=== PATIENT | female | born 1980 | race Caucasian/White ===

== ENCOUNTER 2016-07-01 15:00 | Outpatient (RCR) | payer OTHER ==
[~2016-07-01 15:00] MED LIST: HYDR-3812 PO; LORA-404 PO; LORA0.5T; OMEP40CA36 PO; ONDA4TAB8 PO; ONDA8TAB13; PANT20TA2 PO; PANT20TA3; PANT40TA2 PO; PHEN100T17 PO; PRAM0.5T9; SCOP1PAT TD; SCR1T1 PO; SUCR1ORA5 PO; SUCR1TAB36 PO; SULF-222 PO
== END 2016-07-14 | disposition home or self-care (01) ==
PROVIDERS: ATTEND Nurse Practitioner
DX: M54.2 Cervicalgia (principal)

== ENCOUNTER 2016-10-22 15:18 | Emergency (ER) | payer SELFPAY ==
[~2016-10-22] VITALS: Ht 170.2 cm; Wt 52.2 kg
[2016-10-22] MEDS ORDERED: LORazepam INJ 2 MG/ML (ATIVAN) VIAL IVP ONE (15:45)
--- NOTE | 2016-10-22 15:48 | ED General ---
General Chief Complaint: Chest Pain Stated Complaint: CHEST PAIN, HIGH BLOOD PRESSURE, SHAKY Source of Information: Patient Exam Limitations: No Limitations History of Present Illness Time Seen by Provider: 15:46 Initial Comments To ER with a 2 day history of chest pain, shakiness, anxiety, high blood pressure. She started fluvoxamine recently (4 days ago) for suspected Tourette' s syndrome. Timing/Duration: 1-2 Days Severity: Moderate Allergies and Home Medications Allergies Coded Allergies: meperidine (Unverified Adverse Reaction, Unknown, 02/16/16) promethazine (Unverified Adverse Reaction, Unknown, 02/16/16) Home Medications Fluvoxamine Maleate 25 Mg Tablet, 25 MG PO DAILY, (Reported) Lorazepam 0.5 Mg Tablet, 0.5 MG PO DAILY, (Reported) Pantoprazole Sodium 40 Mg Tablet.dr, 40 MG PO DAILY, #60 Ref 3 Take protonix 40 mg bid for 2 weeks and then once a day after that Prescribed by: ASAD NELSON on 03/17/16 1020 Sucralfate 1 Gm Tablet, 1 GM PO QID, #120 Prescribed by: ASAD NELSON on 03/17/16 1020 Constitutional: see HPI, diaphoresis EENTM: see HPI Respiratory: no symptoms reported Cardiovascular: no symptoms reported Genitourinary: no symptoms reported Musculoskeletal: see HPI Skin: no symptoms reported Psychiatric/Neurological: No Symptoms Reported Hematologic/Lymphatic: No Symptoms Reported Past Jjoidph-Sobdds-Prhmjm Hx Patient Social History Recent Foreign Travel: No Contact w/Someone Who Travel: No Recent Hopitalizations: No Surgeries HX Surgeries: Yes (CS X2, OOPHORECTOMY) Surgeries: Section, Hysterectomy, Tubal Ligation Respiratory Hx Respiratory Disorders: No Cardiovascular Hx Cardiac Disorders: No Neurological Hx Neurological Disorders: No Reproductive System Hx 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 Genitourinary Hx Genitourinary Disorders: Yes Genitourinary Disorders: UTI-Chronic Gastrointestinal Hx Gastrointestinal Disorders: Yes (EGD; MULTIPLE COLONOSCOPIES) Gastrointestinal Disorders: Gastroesophageal Reflux, Hiatal Hernia, Irritable Bowel Musculoskeletal Hx Musculoskeletal Disorders: No Endocrine Hx Endocrine Disorders: No HEENT HX ENT Disorders: No Cancer Hx Cancer: No Psychosocial Hx Psychiatric Problems: No (PT DENIES) Blood Transfusions Hx Blood Disorders: No Family Medical History Significant Family History: No Pertinent Family Hx Physical Exam Vital Signs Vital Sign - Last 12Hours 10/22/16 15:30 Temp 97.8 Pulse 90 Resp 20 B/P (MAP) 133/105 Pulse Ox 98 O2 Delivery Room Air Capillary Refill : General Appearance: No Apparent Distress, WD/WN, Anxious, Other (keep her eyes closed while talking) Eyes: Bilateral Eye EOMI, Bilateral Eye Normal Inspection, Bilateral Eye PERRL HEENT: PERRL/EOMI, TMs Normal Neck: Full Range of Motion, Normal Inspection Respiratory: No Accessory Muscle Use, No Respiratory Distress Cardiovascular: Regular Rate, Rhythm, Normal Peripheral Pulses Gastrointestinal: Non Tender, Soft Extremity: Normal Capillary Refill, Normal Inspection Neurologic/Psychiatric: Alert, Oriented x3 Skin: Normal Color, Warm/Dry Progress/Results/Core Measures Results/Orders Lab Results Laboratory Tests Test 10/22/16 15:45 10/22/16 15:47 10/22/16 16:10 Range/Units White Blood Count 7.3 4.3-11.0 10^3/uL Red Blood Count 4.65 4.35-5.85 10^6/uL Hemoglobin 14.7 11.5-16.0 G/DL Hematocrit 42 35-52 % Mean Corpuscular Volume 89 80-99 FL Mean Corpuscular Hemoglobin 32 25-34 PG Mean Corpuscular Hemoglobin Concent 35 32-36 G/DL Red Cell Distribution Width 11.8 10.0-14.5 % Platelet Count 267 130-400 10^3/uL Mean Platelet Volume 10.2 7.4-10.4 FL Neutrophils (%) (Auto) 77 H 42-75 % Lymphocytes (%) (Auto) 17 12-44 % Monocytes (%) (Auto) 5 0-12 % Eosinophils (%) (Auto) 0 0-10 % Basophils (%) (Auto) 1 0-10 % Neutrophils # (Auto) 5.6 1.8-7.8 X 10^3 Lymphocytes # (Auto) 1.3 1.0-4.0 X 10^3 Monocytes # (Auto) 0.4 0.0-1.0 X 10^3 Eosinophils # (Auto) 0.0 0.0-0.3 10^3/uL Basophils # (Auto) 0.0 0.0-0.1 10^3/uL Sodium Level 140 135-145 MMOL/L Potassium Level 3.9 3.6-5.0 MMOL/L Chloride Level 107 98-107 MMOL/L Carbon Dioxide Level 24 21-32 MMOL/L Anion Gap 9 5-14 MMOL/L Blood Urea Nitrogen 12 7-18 MG/DL Creatinine 0.83 0.60-1.30 MG/DL Estimat Glomerular Filtration Rate > 60 BUN/Creatinine Ratio 14 Glucose Level 97 70-105 MG/DL Calcium Level 9.6 8.5-10.1 MG/DL Total Bilirubin 0.7 0.1-1.0 MG/DL Aspartate Amino Transf (AST/SGOT) 17 5-34 U/L Alanine Aminotransferase (ALT/SGPT) 17 0-55 U/L Alkaline Phosphatase 31 L 40-136 U/L Troponin I < 0.30 <0.30 NG/ML Total Protein 7.4 6.4-8.2 G/DL Albumin 4.9 H 3.2-4.5 G/DL Thyroid Stimulating Hormone (TSH) 1.24 0.35-4.94 UIU/ML Free Thyroxine 1.02 0.70-1.48 NG/DL Glucometer 101 70-110 MG/DL Urine Color YELLOW Urine Clarity CLEAR Urine pH 7 5-9 Urine Specific [place] 1.010 L 1.016-1.022 Urine Protein NEGATIVE NEGATIVE Urine Glucose (UA) NEGATIVE NEGATIVE Urine Ketones 1+ H NEGATIVE Urine Nitrite NEGATIVE NEGATIVE Urine Bilirubin NEGATIVE NEGATIVE Urine Urobilinogen NORMAL NORMAL MG/DL Urine Leukocyte Esterase NEGATIVE NEGATIVE Urine RBC (Auto) NEGATIVE NEGATIVE Urine RBC NONE /HPF Urine WBC RARE /HPF Urine Squamous Epithelial Cells 2-5 /HPF Urine Crystals NONE /LPF Urine Bacteria FEW H /HPF Urine Casts NONE /LPF Urine Mucus NEGATIVE /LPF Urine Culture Indicated NO Urine Opiates Screen NEGATIVE NEGATIVE Urine Oxycodone Screen NEGATIVE NEGATIVE Urine Methadone Screen NEGATIVE NEGATIVE Urine Propoxyphene Screen NEGATIVE NEGATIVE Urine Barbiturates Screen NEGATIVE NEGATIVE Ur Tricyclic Antidepressants Screen NEGATIVE NEGATIVE Urine Phencyclidine Screen NEGATIVE NEGATIVE Urine Amphetamines Screen NEGATIVE NEGATIVE Urine Methamphetamines Screen NEGATIVE NEGATIVE Urine Benzodiazepines Screen NEGATIVE NEGATIVE Urine Cocaine Screen NEGATIVE NEGATIVE Urine Cannabinoids Screen NEGATIVE NEGATIVE My Orders Orders - REJI CAVAZOS DRIVEWAY SEALER Cbc With Automated Diff (10/22/16 15:37) Comprehensive Metabolic Panel (10/22/16 15:37) Ua Culture If Indicated (10/22/16 15:37) Urine Bedside (10/22/16 15:37) Saline Lock/Iv-Start (10/22/16 15:37) Thyroid Stimulating Hormone (10/22/16 15:37) Free T4 (Free Thyroxine) (10/22/16 15:37) Drug Screen Stat (Urine) (10/22/16 15:37) Lorazepam Injection (Ativan Injection) (10/22/16 15:45) Medications Given in ED Current Medications Medications Dose Ordered Sig/Aditi Route Start Time Stop Time Status Last Admin Dose Admin Lorazepam 1 mg ONCE ONCE IVP 10/22/16 15:45 10/22/16 15:46 DC 10/22/16 15:52 1 MG Vital Signs/I&O Vital Sign - Last 12Hours 10/22/16 15:30 Temp 97.8 Pulse 90 Resp 20 B/P (MAP) 133/105 Pulse Ox 98 O2 Delivery Room Air Departure Impression Impression: Primary Impression: Medication adverse effect Disposition: 01 HOME, SELF-CARE Condition: Stable Departure-Patient Inst. Decision time for Depature: 16:42 Referrals: LINDA BARGER DO (PCP) Primary Care Physician Patient Instructions: NO INSTRUCTIONS GIVEN Add. Discharge Instructions: 1. Discuss her symptoms with her primary care provider. I think your symptoms are side effects of starting the fluvoxamine. With that in mind side effects are typically worse in the first 1-3 weeks and taper off after that. Because of that I think that she should continue your 2. Return to ER for any concerns 3. All discharge instructions reviewed with patient and/or family. Voiced understanding. Scripts Lorazepam (Lorazepam) 1 Mg Tablet 1 MG PO BID Y for ANXIETY, #10 TAB Prov: REJI CAVAZOS DRIVEWAY SEALER 10/22/[address] SEALER October 22, 2016 15:48
[2016-10-22 15:53] LABS: BASOPHILS % (AUTO) 1 % (0-10); EOSINOPHILS % (AUTO) 0 % (0-10); LYMPHOCYTES # (AUTO) 1.3 X 10^3 (1.0-4.0); LYMPHOCYTES % (AUTO) 17 % (12-44); MEAN CORPUSCULAR HEMOGLOBIN 32 PG (25-34); MEAN CORPUSCULAR HGB CONC 35 G/DL (32-36); MEAN CORPUSCULAR VOLUME 89 FL (80-99); MEAN PLATELET VOLUME 10.2 FL (7.4-10.4); MONOCYTES # (AUTO) 0.4 X 10^3 (0.0-1.0); MONOCYTES % (AUTO) 5 % (0-12); NEUTROPHILS # (AUTO) 5.6 X 10^3 (1.8-7.8); NEUTROPHILS % (AUTO) 77 % (42-75); PLATELET COUNT 267 10^3/uL (130-400); RED BLOOD COUNT 4.65 10^6/uL (4.35-5.85); RED CELL DISTRIBUTION WIDTH 11.8 % (10.0-14.5); WHITE BLOOD COUNT 7.3 10^3/uL (4.3-11.0)
[2016-10-22] MEDS ORDERED: FLUV25TA3 PO (16:04)
[2016-10-22 16:14] LABS: ALANINE AMINOTRANSFERASE 17 U/L (0-55); ALBUMIN 4.9 G/DL (3.2-4.5); ANION GAP 9 MMOL/L (5-14); ASPARTATE AMINO TRANSFERASE 17 U/L (5-34); BILIRUBIN,TOTAL 0.7 MG/DL (0.1-1.0); BLOOD UREA NITROGEN 12 MG/DL (7-18); BUN/CREATININE RATIO 14; CALCIUM 9.6 MG/DL (8.5-10.1); CARBON DIOXIDE 24 MMOL/L (21-32); CHLORIDE 107 MMOL/L (98-107); CREATININE SERUM 0.83 MG/DL (0.60-1.30); GFR ESTIMATED > 60; GLUCOSE 97 MG/DL (70-105); POTASSIUM 3.9 MMOL/L (3.6-5.0); SODIUM 140 MMOL/L (135-145); TOTAL PROTEIN 7.4 G/DL (6.4-8.2)
[2016-10-22 16:18] LABS: BILIRUBIN,URINE NEGATIVE (NEGATIVE); KETONES,URINE 1+ (NEGATIVE); LEUKOCYTE ESTERASE ,URINE NEGATIVE (NEGATIVE); NITRITE,URINE NEGATIVE (NEGATIVE); PH,URINE 7 (5-9); PROTEIN,URINE NEGATIVE (NEGATIVE); UROBILINOGEN,URINE NORMAL (NORMAL)
[2016-10-22 16:25] LABS: WBC,URINE RARE /HPF
[2016-10-22 16:35] LABS: THYROID STIMULATING HORMONE 1.24 UIU/ML (0.35-4.94); TROPONIN I < 0.30 NG/ML (<0.30)
[2016-10-22] MEDS ORDERED: LORA1TAB PO (16:57)
[2016-10-22 17:08] VITALS: BP 121/85
== END 2016-10-22 17:08 | disposition home or self-care (01) ==
LOC: EDUNIT# 15:18 → ER 15:21
DX: R07.9 Chest pain, unspecified (principal); F41.9 Anxiety disorder, unspecified; T43.225A Adverse effect of selective serotonin reuptake inhibitors, initial encounter
CPT/HCPCS: 36415; 80053; 80306; 81000; 82962; 84439; 84443; 84484; 85025; 93005; 96374

== ENCOUNTER 2016-10-24 12:52 | Emergency (ER) | payer SELFPAY ==
[~2016-10-24] VITALS: Ht 167.6 cm; Wt 52.2 kg
[~2016-10-24 12:52] MED LIST changes: +FLUV25TA3 PO; +LORA1TAB PO
[2016-10-24] MEDS ORDERED: NS IV 1000 ML 1,000 ML IV ONE (13:21)
[2016-10-24 13:37] LABS: BASOPHILS % (AUTO) 1 % (0-10); EOSINOPHILS % (AUTO) 1 % (0-10); LYMPHOCYTES # (AUTO) 1.2 X 10^3 (1.0-4.0); LYMPHOCYTES % (AUTO) 13 % (12-44); MEAN CORPUSCULAR HEMOGLOBIN 31 PG (25-34); MEAN CORPUSCULAR HGB CONC 34 G/DL (32-36); MEAN CORPUSCULAR VOLUME 90 FL (80-99); MEAN PLATELET VOLUME 10.3 FL (7.4-10.4); MONOCYTES # (AUTO) 0.5 X 10^3 (0.0-1.0); MONOCYTES % (AUTO) 6 % (0-12); NEUTROPHILS # (AUTO) 7.1 X 10^3 (1.8-7.8); NEUTROPHILS % (AUTO) 80 % (42-75); PLATELET COUNT 245 10^3/uL (130-400); RED BLOOD COUNT 4.67 10^6/uL (4.35-5.85); RED CELL DISTRIBUTION WIDTH 11.6 % (10.0-14.5); WHITE BLOOD COUNT 8.8 10^3/uL (4.3-11.0)
--- NOTE | 2016-10-24 13:42 | ED General ---
General Chief Complaint: General Problems/Pain Stated Complaint: SYNCOPE, HARD TIME THINKING Nursing Triage Note: AMBULATED TO ROOM 09 WITH MULTIPLE COMPLAINTS INCLUDING WEAKNESS, NOT THINKING STRAIT, FEELING LIKE SHE IS GOING TO PASS OUT, CHEST PAIN, SOA - ET GENERALLY NOT FEELING WELL SINCE TAKING A NEW MEDICATION THAT SHE HAS NOW STOPPED. THIS IS 2ND VISIT TO ER FOR SAME SYMPTOMS. PT IS TAKIKNG A NUTRITIONAL SUPPLEMENT CALLED THRIVE ALSO. 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 Nursing Sepsis Screen: No Definite Risk Source of Information: Patient Exam Limitations: No Limitations History of Present Illness Time Seen by Provider: 13:15 Initial Comments Here with a variety of complaints including not feeling well, chest pain, shortness of air, abdominal pain, weakness, not thinking well and overall not feeling well. She was seen 2 days ago and had a fairly benign workup but was told to stop taking the new medication that should started 2 days prior to that. She did do that but she is still not feeling well today. She did take one of the Ativan that was prescribed for this and took a shower and that did not make things better so she presented to the ER today. She is tearful. Timing/Duration: 2-3 Days, Changing Over Time Severity: Moderate Associated Systoms: Chest Pain, No Fever/Chills, Malaise, Nausea/Vomiting, Shortness of Air, Weakness Allergies and Home Medications Allergies Coded Allergies: meperidine (Unverified Adverse Reaction, Unknown, 02/16/16) promethazine (Unverified Adverse Reaction, Unknown, 02/16/16) Home Medications Fluvoxamine Maleate 25 Mg Tablet, 25 MG PO DAILY, (Reported) Lorazepam 0.5 Mg Tablet, 0.5 MG PO DAILY, (Reported) Lorazepam 1 Mg Tablet, 1 MG PO BID PRN for ANXIETY, #10 Prescribed by: REJI CAVAZOS on 10/22/16 1657 Pantoprazole Sodium 40 Mg Tablet.dr, 40 MG PO DAILY, #60 Ref 3 Take protonix 40 mg bid for 2 weeks and then once a day after that Prescribed by: ASAD NELSON on 03/17/16 1020 Sucralfate 1 Gm Tablet, 1 GM PO QID, #120 Prescribed by: ASAD NELSON on 03/17/16 1020 Constitutional: see HPI, No chills, dizziness, No fever, malaise EENTM: see HPI Respiratory: see HPI, short of breath, No wheezing Cardiovascular: chest pain, No edema, palpitations Gastrointestinal: abdominal pain (epigastric), nausea, No vomiting Genitourinary: No dysuria, No hematuria : No Musculoskeletal: muscle twitching Skin: no symptoms reported Psychiatric/Neurological: No Symptoms Reported All Other Systems Reviewed Negative Unless Noted: Yes Past Zqogjvf-Qcxlil-Nxrbcu Hx Patient Social History Alcohol Use: Denies Use Recreational Drug Use: No Smoking Status: Never a Smoker Recent Foreign Travel: No Contact w/Someone Who Travel: No Recent Infectious Disease Expo: No Recent Hopitalizations: No Seasonal Allergies Seasonal Allergies: No Surgeries HX Surgeries: Yes (CS X2, OOPHORECTOMY) Surgeries: Section, Hysterectomy, Tubal Ligation Respiratory Hx Respiratory Disorders: No Cardiovascular Hx Cardiac Disorders: No Neurological Hx Neurological Disorders: No Reproductive System Hx Reproductive Disorders: 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 Genitourinary Hx Genitourinary Disorders: Yes Genitourinary Disorders: UTI-Chronic Gastrointestinal Hx Gastrointestinal Disorders: Yes (EGD; MULTIPLE COLONOSCOPIES) Gastrointestinal Disorders: Gastroesophageal Reflux, Hiatal Hernia, Irritable Bowel Musculoskeletal Hx Musculoskeletal Disorders: No Endocrine Hx Endocrine Disorders: No HEENT HX ENT Disorders: No Cancer Hx Cancer: No Psychosocial Hx Psychiatric Problems: No (PT DENIES) Blood Transfusions Hx Blood Disorders: No Reviewed Nursing Assessment Reviewed/Agree w Nursing PMH: Yes Family Medical History Significant Family History: No Pertinent Family Hx Physical Exam Vital Signs Vital Sign - Last 12Hours 10/24/16 13:10 Temp 98.0 Pulse 115 Resp 18 B/P (MAP) 144/89 Pulse Ox 98 Capillary Refill : Less Than 3 Seconds General Appearance: WD/WN, Anxious HEENT: PERRL/EOMI, Normal ENT Inspection, Pharynx Normal Neck: Full Range of Motion, Non Tender, Supple Respiratory: Lungs Clear, Normal Breath Sounds, No Accessory Muscle Use Cardiovascular: No Murmur, Tachycardia Gastrointestinal: Non Tender, Soft Back: Normal Inspection, No CVA Tenderness Extremity: Normal Range of Motion, Non Tender Neurologic/Psychiatric: Alert, Normal Mood/Affect, 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 Norm as Tested Skin: Normal Color, Warm/Dry Progress/Results/Core Measures Results/Orders Lab Results Laboratory Tests Test 10/24/16 13:30 10/24/16 13:39 Range/Units White Blood Count 8.8 4.3-11.0 10^3/uL Red Blood Count 4.67 4.35-5.85 10^6/uL Hemoglobin 14.5 11.5-16.0 G/DL Hematocrit 42 35-52 % Mean Corpuscular Volume 90 80-99 FL Mean Corpuscular Hemoglobin 31 25-34 PG Mean Corpuscular Hemoglobin Concent 34 32-36 G/DL Red Cell Distribution Width 11.6 10.0-14.5 % Platelet Count 245 130-400 10^3/uL Mean Platelet Volume 10.3 7.4-10.4 FL Neutrophils (%) (Auto) 80 H 42-75 % Lymphocytes (%) (Auto) 13 12-44 % Monocytes (%) (Auto) 6 0-12 % Eosinophils (%) (Auto) 1 0-10 % Basophils (%) (Auto) 1 0-10 % Neutrophils # (Auto) 7.1 1.8-7.8 X 10^3 Lymphocytes # (Auto) 1.2 1.0-4.0 X 10^3 Monocytes # (Auto) 0.5 0.0-1.0 X 10^3 Eosinophils # (Auto) 0.0 0.0-0.3 10^3/uL Basophils # (Auto) 0.0 0.0-0.1 10^3/uL D-Dimer 0.37 0.00-0.49 UG/ML Sodium Level 142 135-145 MMOL/L Potassium Level 3.6 3.6-5.0 MMOL/L Chloride Level 109 H 98-107 MMOL/L Carbon Dioxide Level 25 21-32 MMOL/L Anion Gap 8 5-14 MMOL/L Blood Urea Nitrogen 18 7-18 MG/DL Creatinine 0.85 0.60-1.30 MG/DL Estimat Glomerular Filtration Rate > 60 BUN/Creatinine Ratio 21 Glucose Level 99 70-105 MG/DL Calcium Level 9.6 8.5-10.1 MG/DL Total Bilirubin 0.7 0.1-1.0 MG/DL Aspartate Amino Transf (AST/SGOT) 14 5-34 U/L Alanine Aminotransferase (ALT/SGPT) 15 0-55 U/L Alkaline Phosphatase 33 L 40-136 U/L Troponin I < 0.30 <0.30 NG/ML C-Reactive Protein High Sensitivity 0.02 0.00-0.50 MG/DL Total Protein 6.9 6.4-8.2 G/DL Albumin 4.5 3.2-4.5 G/DL Urine Color YELLOW Urine Clarity CLEAR Urine pH 7 5-9 Urine Specific [place] 1.010 L 1.016-1.022 Urine Protein NEGATIVE NEGATIVE Urine Glucose (UA) NEGATIVE NEGATIVE Urine Ketones NEGATIVE NEGATIVE Urine Nitrite NEGATIVE NEGATIVE Urine Bilirubin NEGATIVE NEGATIVE Urine Urobilinogen NORMAL NORMAL MG/DL Urine Leukocyte Esterase NEGATIVE NEGATIVE Urine RBC (Auto) NEGATIVE NEGATIVE Urine RBC NONE /HPF Urine WBC RARE /HPF Urine Squamous Epithelial Cells 2-5 /HPF Urine Crystals NONE /LPF Urine Bacteria NEGATIVE /HPF Urine Casts NONE /LPF Urine Mucus NEGATIVE /LPF Urine Culture Indicated NO My Orders Orders - UQINCY CHACON MD Cbc With Automated Diff (10/24/16 13:21) Comprehensive Metabolic Panel (10/24/16 13:21) Hs C Reactive Protein (10/24/16 13:21) Fibrin Degradation Products (10/24/16 13:21) Troponin I (10/24/16 13:21) Ua Culture If Indicated (10/24/16 13:21) Ekg Tracing (10/24/16 13:21) Chest 1 View, Ap/Pa Only (10/24/16 13:21) Saline Lock/Iv-Start (10/24/16 13:21) Ns Iv 1000 Ml (Sodium Chloride 0.9%) (10/24/16 13:21) Medications Given in ED Current Medications Medications Dose Ordered Sig/Aditi Route Start Time Stop Time Status Last Admin Dose Admin Sodium Chloride 1,000 ml @ 0 mls/hr Q0M ONCE IV 10/24/16 13:21 10/24/16 13:24 DC 10/24/16 14:05 1,000 MLS/HR Vital Signs/I&O Vital Sign - Last 12Hours 10/24/16 13:10 Temp 98.0 Pulse 115 Resp 18 B/P (MAP) 144/89 Pulse Ox 98 Blood Pressure Mean: 107 Progress Note : Progress Note Seen and evaluated. IV, labs, UA, normal saline 1 L bolus, chest x-ray and EKG ordered. Monitor patient. 1515: No acute findings. Discharged home with return precautions. Patient verbalize understanding instructions and agreement with plan. She feels a little better now but still is concerned. This may be largely related to medication side effect but will need follow-up. She is instructed to follow-up with her doctor on Wednesday. Patient and family verbalize understanding. ECG Initial ECG Impression Date: October 24, 2016 Initial ECG Impression Time: 13:32 Initial ECG Rate: 92 Initial ECG Rhythm: Normal Sinus Comment Sinus rhythm with normal axis. No evidence of ST elevation MS. Left atrial abnormality noted. Similar to previous of 2 days ago. Interpreted by me. Diagnostic Imaging Diagonstic Imaging: Xray Plain Films/CT/US/NM/MRI: chest Comments NAME: CHARLES KIRK [facility] REC#: [id number] PT STATUS: REG ER : 1980 PHYSICIAN: QUINCY CHACON MD ADMIT DATE: 10/24/16/ER Signed Date of Exam: 10/24/16 CHEST 1 VIEW, AP/PA ONLY INDICATION: Fall. Weakness. Chest pain for 2 days. FINDINGS: Upright portable chest shows normal heart size and vascularity. The lungs are clear. There is no effusion or pneumothorax. IMPRESSION: No acute abnormality is seen. There is no change from 02/16/2016. Dictated by: Dictated on workstation # [id number] Dict: 10/24/16 1420 Trans: 10/24/16 142 Interpreted by: JAYCEE PEREZ MD Electronically signed by: JAYCEE PEREZ MD 10/24/16 142 Departure Impression Impression: Primary Impression: Medication side effect Qualified Codes: T88.7XXD - Unspecified adverse effect of drug or medicament, subsequent encounter Additional Impression: Anxiety Disposition: 01 HOME, SELF-CARE Condition: Improved Departure-Patient Inst. Decision time for Depature: 15:16 Referrals: LINDA BARGER DO (PCP) Primary Care Physician Patient Instructions: Anxiety, Adult (DC), MEDICATION REACTION Add. Discharge Instructions: All discharge instructions reviewed with patient and/or family. Voiced understanding. Follow-up with your doctor on Wednesday for recheck and further evaluation. Return for worse pain, fever, vomiting, weakness, breathing problems or other concerns as needed. Restart your Prilosec. You may take Pepcid or the generic famotidine 20 mg up to twice daily for the next few days as needed for stomach upset as well. Copy Copies To 1: LINDA BARGER TIMOTHY D MD October 24, 2016 13:42
[2016-10-24 13:45] LABS: BILIRUBIN,URINE NEGATIVE (NEGATIVE); KETONES,URINE NEGATIVE (NEGATIVE); LEUKOCYTE ESTERASE ,URINE NEGATIVE (NEGATIVE); NITRITE,URINE NEGATIVE (NEGATIVE); PH,URINE 7 (5-9); PROTEIN,URINE NEGATIVE (NEGATIVE); UROBILINOGEN,URINE NORMAL (NORMAL)
[2016-10-24 13:52] LABS: WBC,URINE RARE /HPF
[2016-10-24 13:55] LABS: ALANINE AMINOTRANSFERASE 15 U/L (0-55); ALBUMIN 4.5 G/DL (3.2-4.5); ANION GAP 8 MMOL/L (5-14); ASPARTATE AMINO TRANSFERASE 14 U/L (5-34); BILIRUBIN,TOTAL 0.7 MG/DL (0.1-1.0); BLOOD UREA NITROGEN 18 MG/DL (7-18); BUN/CREATININE RATIO 21; CALCIUM 9.6 MG/DL (8.5-10.1); CARBON DIOXIDE 25 MMOL/L (21-32); CHLORIDE 109 MMOL/L (98-107); CREATININE SERUM 0.85 MG/DL (0.60-1.30); GFR ESTIMATED > 60; GLUCOSE 99 MG/DL (70-105); POTASSIUM 3.6 MMOL/L (3.6-5.0); SODIUM 142 MMOL/L (135-145); TOTAL PROTEIN 6.9 G/DL (6.4-8.2); hs C REACTIVE PROTEIN 0.02 MG/DL (0.00-0.50)
[2016-10-24 14:01] LABS: TROPONIN I < 0.30 NG/ML (<0.30)
--- NOTE | 2016-10-24 14:22 | Diagnostic Imaging Report ---
INDICATION: Fall. Weakness. Chest pain for 2 days. FINDINGS: Upright portable chest shows normal heart size and vascularity. The lungs are clear. There is no effusion or pneumothorax. IMPRESSION: No acute abnormality is seen. There is no change from 02/16/2016. Dictated by: Dictated on workstation # [id number]
[2016-10-24 15:25] VITALS: BP 108/72
== END 2016-10-24 15:25 | disposition home or self-care (01) ==
LOC: EDUNIT# 12:52 → ER 12:53
DX: T88.7XXA Unspecified adverse effect of drug or medicament, initial encounter (principal); Z79.899 Other long term (current) drug therapy
CPT/HCPCS: 36415; 71010; 80053; 81000; 84484; 85025; 85379; 86141; 93005; 96360

== ENCOUNTER 2017-05-21 13:46 | Emergency (ER) | payer SELFPAY ==
[~2017-05-21] VITALS: Ht 170.2 cm; Wt 51.7 kg
--- OUTSIDE RECORDS SUMMARY | 2017-05-21 13:53 | XMS REPORT ---
Author Author DANIELLE GALLAGHER Organization [facility] Address [address] [place] [address] Care Team Providers Care Tray Drier Operator Name Role Phone DANIELLE GALLAGHER Unavailable PROBLEMS Type Condition ICD9-CM Code [id number] Code Onset Dates Condition Status SNOMED Code Problem Gastroesophageal reflux disease, esophagitis presence not specified K21.9 Active 766329092 Problem Tourette syndrome F95.2 Active 8269702 Problem Anxiety disorder, unspecified F41.9 Active 094983518 Problem Typical absence seizures, non-refractory G40.A09 Active 154611067965889 Problem Closed nondisplaced fracture of distal phalanx of little finger with mal union_ , unspecified laterality, subsequent encounter S62.668P Active 513213598 ALLERGIES Substance Reaction Event Type Date Status Phenergan Unknown Drug Allergy Aug, Active Demerol Unknown Drug Allergy Aug, Active SOCIAL HISTORY Never Assessed PLAN OF CARE VITAL SIGNS Height 67 in 2016-09-04 Weight 114.9 lbs 2016-09-04 Temperature 97.9 degrees Fahrenheit 2016-09-04 Heart Rate 80 bpm 2016-09-04 Respiratory Rate 18 2016-09-04 BMI 17.99 kg/m2 2016-09-04 Blood pressure systolic 124 mmHg 2016-09-04 Blood pressure diastolic 86 mmHg 2016-09-04 MEDICATIONS Medication Instructions Dosage Frequency Start Date End Date Duration Status Depakote 250 MG Orally 2 times a day 1 tablet 12h Aug, Active RESULTS No Results PROCEDURES No Known procedures IMMUNIZATIONS No Known Immunizations MEDICAL (GENERAL) HISTORY Type Description Date Medical History IBS Medical History Pain in joint, lower leg Medical History Pain in joint, lower leg Medical History low blood pressure Medical History siezures Surgical History Hysterectomy 2007 Surgical History Tubal Ligation 2006 Surgical History x2 Surgical History Colonoscopy x5 Surgical History Ovarian Cyst Removal Surgical History endoscopy 02/2016 Surgical History sleep study 02/2016 Hospitalization History ER visit; panic attack 11/2015 Hospitalization History surgery related
--- OUTSIDE RECORDS SUMMARY | 2017-05-21 13:53 | XMS REPORT ---
Author Author DANIELLE GALLAGHER Organization [facility] [place] Address [address] [place] [address] Care Team Providers Care Slate Splitter Name Role Phone DANIELLE GALLAGHER Unavailable PROBLEMS Type Condition ICD9-CM Code PVP72-[id number] Code Onset Dates Condition Status SNOMED Code Problem Gastroesophageal reflux disease, esophagitis presence not specified K21.9 Active 470273601 Problem Tourette syndrome F95.2 Active 7996492 Problem Anxiety disorder, unspecified F41.9 Active 868466139 Problem Typical absence seizures, non-refractory G40.A09 Active 427046084917586 Problem Closed nondisplaced fracture of distal phalanx of little finger with mal union_ , unspecified laterality, subsequent encounter S62.668P Active 970860429 ALLERGIES Substance Reaction Event Type Date Status Phenergan Unknown Drug Allergy October, Active Demerol Unknown Drug Allergy October, Active SOCIAL HISTORY Never Assessed PLAN OF CARE Activity Details Follow Up 4 Weeks Reason:tourettes VITAL SIGNS Height 67 in 2016-11-06 Weight 114 lbs 2016-11-06 Temperature 98.3 degrees Fahrenheit 2016-11-06 Heart Rate 80 bpm 2016-11-06 Respiratory Rate 16 2016-11-06 BMI 17.85 kg/m2 2016-11-06 Blood pressure systolic 120 mmHg 2016-11-06 Blood pressure diastolic 80 mmHg 2016-11-06 MEDICATIONS Medication Instructions Dosage Frequency Start Date End Date Duration Status Omeprazole 40 MG Orally Once a day 1 capsule 24h October, 30 day(s ) Active Fluvoxamine Maleate 25 MG Orally Once a day 1 tablet at bedtime 24h Sep 30 day(s) Active RESULTS No Results PROCEDURES No Known [...]
--- OUTSIDE RECORDS SUMMARY | 2017-05-21 13:54 | XMS REPORT ---
Author Author DANIELLE GALLAGHER Organization [facility] [place] Address [address] [place] [address] Care Team Providers Care Resource Technician Name Role Phone DANIELLE GALLAGHER Unavailable PROBLEMS Type Condition ICD9-CM Code QER84-HO Code Onset Dates Condition Status SNOMED Code Problem Anxiety disorder, unspecified F41.9 Active 226646261 Problem Chronic fatigue R53.82 Active 39577080 Problem Daytime sleepiness R40.0 Active 161222037436 Problem Typical absence seizures, non-refractory G40.A09 Active 025562023374598 Problem Closed nondisplaced fracture of distal phalanx of little finger with mal union_ , unspecified laterality, subsequent encounter S62.668P Active 811844379 Problem Gastroesophageal reflux disease, esophagitis presence not specified K21.9 Active 278331271 Problem Tourette syndrome F95.2 Active 0268659 ALLERGIES No Information SOCIAL HISTORY Never Assessed PLAN OF CARE VITAL SIGNS MEDICATIONS Medication Instructions Dosage Frequency Start Date End Date Duration Status Ativan 0.5 MG Orally 2 times a day 1 tablet as needed 12h October, 28 days Active RESULTS No Results PROCEDURES No Known [...]
--- OUTSIDE RECORDS SUMMARY | 2017-05-21 13:55 | XMS REPORT ---
Author Author DANIELLE GALLAGHER Organization [facility] Address [address] [place] [address] Care Team Providers Care Pantograph Operator Name Role Phone DANIELLE GALLAGHER Unavailable PROBLEMS Type Condition ICD9-CM Code HUK31-ER Code Onset Dates Condition Status SNOMED Code Problem Gastroesophageal reflux disease, esophagitis presence not specified K21.9 Active 411618351 Problem Tourette syndrome F95.2 Active 1323999 Problem Anxiety disorder, unspecified F41.9 Active 271057527 Problem Typical absence seizures, non-refractory G40.A09 Active 300321999091853 Problem Closed nondisplaced fracture of distal phalanx of little finger with mal union_ , unspecified laterality, subsequent encounter S62.668P Active 394087638 ALLERGIES Substance Reaction Event Type Date Status Phenergan Unknown Drug Allergy October, Active Demerol Unknown Drug Allergy October, Active SOCIAL HISTORY Never Assessed PLAN OF CARE Activity Details Follow Up 48-72 hours Reason: VITAL SIGNS MEDICATIONS Medication Instructions Dosage Frequency Start Date End Date Duration Status Fluvoxamine Maleate 25 MG Orally Once a day 1 tablet at bedtime 24h Sep 30 day(s) Active Omeprazole 40 MG Orally Once a day 1 capsule 24h October, 30 day(s ) Active RESULTS No Results PROCEDURES Procedure Date Ordered Result Body Site TB INTRADERMAL 2016-11-02 N/A TB INTRADERMAL TEST November 02, 2016 IMMUNIZATIONS No Known Immunizations MEDICAL (GENERAL) HISTORY [...]
--- OUTSIDE RECORDS SUMMARY | 2017-05-21 13:55 | XMS REPORT ---
Author Author DANIELLE GALLAGHER Organization [facility] Address [address] [place] [address] Care Team Providers Care Monorail Car Operator Name Role Phone AILEEN DANIELLE Unavailable PROBLEMS Type Condition ICD9-CM Code DAZ18-ZO Code Onset Dates Condition Status SNOMED Code Problem Gastroesophageal reflux disease, esophagitis presence not specified K21.9 Active 256388712 Problem Tourette syndrome F95.2 Active 5556453 Problem Anxiety disorder, unspecified F41.9 Active 130840245 Problem Typical absence seizures, non-refractory G40.A09 Active 219937616300929 Problem Closed nondisplaced fracture of distal phalanx of little finger with mal union_ , unspecified laterality, subsequent encounter S62.518P Active 883852262 ALLERGIES No Information SOCIAL HISTORY Never Assessed PLAN OF CARE VITAL SIGNS MEDICATIONS Unknown Medications RESULTS No Results PROCEDURES No Known procedures [...]
--- NOTE | 2017-05-21 14:19 | ED Abdominal Pain ---
General Chief Complaint: Abdominal/GI Problems Stated Complaint: NAUSEA Source of Information: Patient Exam Limitations: No Limitations History of Present Illness Time Seen By Provider: 14:17 Initial Comments To ER accompanied by her mother and grandmother with reports of epigastric and left upper quadrant abdominal pain worse than usual for 2 days. She does have associated nausea. She has hunger pains yet when she eats the pain becomes even worse. She describes this as a burning sensation. She has also been seeing Rojas GALLAGHER at [facility] for these symptoms which have been less intense for several weeks. She states that she has bouts of extreme fatigue after not eating, she also states that she has periods where she feels like she is in an "coma". During these episodes she states "I can hear everybody but I can't respond and then I come out of it and gas". She also reports shortness of breath. She's been taking her lorazepam for the past few days thinking that might help. She states her irritable bowel syndrome is better. Timing/Duration: 1-2 Days Location: Epigastric Radiation: No Radiation Activities at Onset: None Associated Symptoms: Nausea/Vomiting Allergies and Home Medications Allergies Coded Allergies: meperidine (Unverified Adverse Reaction, Unknown, 02/16/16) promethazine (Unverified Adverse Reaction, Unknown, 02/16/16) Home Medications Fluvoxamine Maleate 25 Mg Tablet, 25 MG PO DAILY, (Reported) Lorazepam 0.5 Mg Tablet, 0.5 MG PO DAILY, (Reported) Lorazepam 1 Mg Tablet, 1 MG PO BID PRN for ANXIETY, #10 Prescribed by: REJI CAVAZOS on 10/22/16 1657 Pantoprazole Sodium 40 Mg Tablet.dr, 40 MG PO DAILY, #60 Ref 3 Take protonix 40 mg bid for 2 weeks and then once a day after that Prescribed by: ASAD NELSON on 03/17/16 1020 Sucralfate 1 Gm Tablet, 1 GM PO QID, #120 Prescribed by: ASAD NELSON on 03/17/16 1020 Sucralfate 1 Gm Tablet, 1 GM PO QID, #40 Prescribed by: REJI CAVAZOS on 05/21/17 1506 Review of Systems Constitutional: see HPI EENTM: No Symptoms Reported Respiratory: No Symptoms Reported Cardiovascular: See HPI Gastrointestinal: See HPI, Abdominal Pain, Nausea Genitourinary: No Symptoms Reported Musculoskeletal: no symptoms reported Skin: no symptoms reported Psychiatric/Neurological: See HPI, Anxiety, Tremors Endocrine: No Symptoms Reported Hematologic/Lymphatic: No Symptoms Reported Past Loxesqf-Ohwxqy-Execvq Hx Patient Social History Recent Foreign Travel: No Contact w/Someone Who Travel: No Recent Hopitalizations: No Seasonal Allergies Seasonal Allergies: No Surgeries Surgeries: Section, Hysterectomy, Tubal Ligation Reproductive System Hx Reproductive Disorders: Yes REPORT MANAGER History: Hysterectomy Genitourinary Genitourinary Disorders: UTI-Chronic Gastrointestinal Gastrointestinal Disorders: Gastroesophageal Reflux, Hiatal Hernia, Irritable Bowel Family Medical History Significant Family History: No Pertinent Family Hx Physical Exam Vital Signs VS - Last 72 Hours, by Label 05/21/17 14:10 Temp 98.9 Pulse 88 Resp 24 B/P (MAP) 127/82 (97) Pulse Ox 98 O2 Delivery Room Air Capillary Refill : General Appearance: WD/WN, no apparent distress HEENT: PERRL/EOMI, normal ENT inspection Neck: non-tender, full range of motion Respiratory: normal breath sounds, no respiratory distress, no accessory muscle use Cardiovascular: regular rate, rhythm, no murmur Gastrointestinal: normal bowel sounds, soft, tenderness Extremities: normal range of motion, non-tender Neurologic/Psychiatric: alert, normal mood/affect, oriented x 3 Skin: normal color, warm/dry Progress/Results/Core Measures Results/Orders Lab Results Laboratory Tests Test 05/21/17 14:10 05/21/17 14:35 Range/Units Urine Color YELLOW Urine Clarity CLEAR Urine pH 6.5 5-9 Urine Specific [place] 1.005 L 1.016-1.022 Urine Protein NEGATIVE NEGATIVE Urine Glucose (UA) NEGATIVE NEGATIVE Urine Ketones NEGATIVE NEGATIVE Urine Nitrite NEGATIVE NEGATIVE Urine Bilirubin NEGATIVE NEGATIVE Urine Urobilinogen NORMAL NORMAL MG/DL Urine Leukocyte Esterase NEGATIVE NEGATIVE Urine RBC (Auto) NEGATIVE NEGATIVE Urine RBC NONE /HPF Urine WBC NONE /HPF Urine Squamous Epithelial Cells NONE /HPF Urine Crystals NONE /LPF Urine Bacteria TRACE /HPF Urine Casts NONE /LPF Urine Mucus NEGATIVE /LPF Urine Culture Indicated NO White Blood Count 6.7 4.3-11.0 10^3/uL Red Blood Count 4.06 L 4.35-5.85 10^6/uL Hemoglobin 12.9 11.5-16.0 G/DL Hematocrit 37 35-52 % Mean Corpuscular Volume 91 80-99 FL Mean Corpuscular Hemoglobin 32 25-34 PG Mean Corpuscular Hemoglobin Concent 35 32-36 G/DL Red Cell Distribution Width 11.3 10.0-14.5 % Platelet Count 278 130-400 10^3/uL Mean Platelet Volume 10.4 7.4-10.4 FL Neutrophils (%) (Auto) 72 42-75 % Lymphocytes (%) (Auto) 21 12-44 % Monocytes (%) (Auto) 6 0-12 % Eosinophils (%) (Auto) 0 0-10 % Basophils (%) (Auto) 1 0-10 % Neutrophils # (Auto) 4.8 1.8-7.8 X 10^3 Lymphocytes # (Auto) 1.4 1.0-4.0 X 10^3 Monocytes # (Auto) 0.4 0.0-1.0 X 10^3 Eosinophils # (Auto) 0.0 0.0-0.3 10^3/uL Basophils # (Auto) 0.0 0.0-0.1 10^3/uL Sodium Level 139 135-145 MMOL/L Potassium Level 3.6 3.6-5.0 MMOL/L Chloride Level 106 98-107 MMOL/L Carbon Dioxide Level 26 21-32 MMOL/L Anion Gap 7 5-14 MMOL/L Blood Urea Nitrogen 12 7-18 MG/DL Creatinine 0.73 0.60-1.30 MG/DL Estimat Glomerular Filtration Rate > 60 BUN/Creatinine Ratio 16 Glucose Level 86 70-105 MG/DL Calcium Level 9.2 8.5-10.1 MG/DL Total Bilirubin 0.6 0.1-1.0 MG/DL Aspartate Amino Transf (AST/SGOT) 16 5-34 U/L Alanine Aminotransferase (ALT/SGPT) 14 0-55 U/L Alkaline Phosphatase 35 L 40-136 U/L Total Protein 7.0 6.4-8.2 GM/DL Albumin 4.4 3.2-4.5 GM/DL Lipase 46 8-78 U/L Serum Test, Qualitative NEGATIVE NEGATIVE My Orders Orders - REJI CAVAZOS APRN Cbc With Automated Diff (05/21/17 14:16) Comprehensive Metabolic Panel (05/21/17 14:16) Lipase (05/21/17 14:16) Ua Culture If Indicated (05/21/17 14:16) Urine Bedside (05/21/17 14:16) Saline Lock/Iv-Start (05/21/17 14:16) Hcg,Qualitative Serum (05/21/17 14:16) Antacid Suspension (Mylanta Suspension (05/21/17 14:30) Lidocaine 2% Viscous 15 Ml (Xylocaine Vi (05/21/17 14:30) Ondansetron Injection (Zofran Injectio (05/21/17 14:30) Ns Iv 1000 Ml (Sodium Chloride 0.9%) (05/21/17 14:30) Helicobacter Pylori Geni Igg (05/21/17 14:35) Medications Given in ED Current Medications Medications Dose Ordered Sig/Aditi Route Start Time Stop Time Status Last Admin Dose Admin Al Hydrox/Mg Hydrox/Simethicone 30 ml ONCE ONCE PO 05/21/17 14:30 05/21/17 14:31 DC 05/21/17 14:41 30 ML Lidocaine HCl 15 ml ONCE ONCE PO 05/21/17 14:30 05/21/17 14:31 DC 05/21/17 14:42 15 ML Ondansetron HCl 4 mg ONCE ONCE IVP 05/21/17 14:30 05/21/17 14:31 DC 05/21/17 14:45 4 MG Vital Signs/I&O Vital Sign - Last 12Hours 05/21/17 14:10 Temp 98.9 Pulse 88 Resp 24 B/P (MAP) 127/82 (97) Pulse Ox 98 O2 Delivery Room Air Departure Communication (Admissions) Progress Notes 1519-she states she had some temporary improvement after the GI cocktail. I did suggest she start taking Carafate began but she states she can't take this because it flares up her irritable bowel. 1545- she states that her recently tested positive for Helicobacter pylori on EGD. She is worried that she may have this. To give her piece of mind as that seems to be the biggest issue here, I will prescribed clarithromycin 500 mg twice a day, Amoxil 1000 mg twice a day, Flagyl 500 mg 3 times a day for 10 days duration. She is already on Protonix 40 mg daily. I will advise her not to fill these until we call her to reported positive helical h pylori titer. Impression Impression: Primary Impression: Epigastric abdominal pain Additional Impressions: Anxiety related tremor Nausea Fatigue Irritable bowel syndrome Disposition: HOME, SELF-CARE Condition: Stable Departure-Patient Inst. Decision time for Depature: 15:05 Referrals: LINDA BARGER DO (PCP) Primary Care Physician DANIELLE GALLAGHER (Family) Primary Care Physician Patient Instructions: No Instuctions Given Add. Discharge Instructions: 1. Medication as directed 2. Follow-up with your doctor next week 3. All discharge instructions reviewed with patient and/or family. Voiced understanding. REJI CAVAZOS APRN May 21, 2017 14:19
[2017-05-21] MEDS ORDERED: ONDANSETRON 4 MG/2 ML (SDV) Z0FRAN IVP ONE (14:30)
[2017-05-21] MEDS ORDERED: NS IV 1000 ML 1,000 ML IV SCH (14:30)
[2017-05-21] MEDS ORDERED: ANTACID SUSP 30 ML UDC (MYLANTA) PO ONE (14:30)
[2017-05-21] MEDS ORDERED: LIDOCAINE 2% VISCOUS 15 ML UDC PO ONE (14:30)
[2017-05-21 14:42] LABS: BASOPHILS % (AUTO) 1 % (0-10); EOSINOPHILS % (AUTO) 0 % (0-10); LYMPHOCYTES # (AUTO) 1.4 X 10^3 (1.0-4.0); LYMPHOCYTES % (AUTO) 21 % (12-44); MEAN CORPUSCULAR HEMOGLOBIN 32 PG (25-34); MEAN CORPUSCULAR HGB CONC 35 G/DL (32-36); MEAN CORPUSCULAR VOLUME 91 FL (80-99); MEAN PLATELET VOLUME 10.4 FL (7.4-10.4); MONOCYTES # (AUTO) 0.4 X 10^3 (0.0-1.0); MONOCYTES % (AUTO) 6 % (0-12); NEUTROPHILS # (AUTO) 4.8 X 10^3 (1.8-7.8); NEUTROPHILS % (AUTO) 72 % (42-75); PLATELET COUNT 278 10^3/uL (130-400); RED BLOOD COUNT 4.06 10^6/uL (4.35-5.85); RED CELL DISTRIBUTION WIDTH 11.3 % (10.0-14.5); WHITE BLOOD COUNT 6.7 10^3/uL (4.3-11.0)
[2017-05-21 15:04] LABS: ALANINE AMINOTRANSFERASE 14 U/L (0-55); ALBUMIN 4.4 GM/DL (3.2-4.5); ANION GAP 7 MMOL/L (5-14); ASPARTATE AMINO TRANSFERASE 16 U/L (5-34); BILIRUBIN,TOTAL 0.6 MG/DL (0.1-1.0); BLOOD UREA NITROGEN 12 MG/DL (7-18); BUN/CREATININE RATIO 16; CALCIUM 9.2 MG/DL (8.5-10.1); CARBON DIOXIDE 26 MMOL/L (21-32); CHLORIDE 106 MMOL/L (98-107); CREATININE SERUM 0.73 MG/DL (0.60-1.30); GFR ESTIMATED > 60; GLUCOSE 86 MG/DL (70-105); LIPASE 46 U/L (8-78); POTASSIUM 3.6 MMOL/L (3.6-5.0); SODIUM 139 MMOL/L (135-145)
[2017-05-21 15:06] LABS: BILIRUBIN,URINE NEGATIVE (NEGATIVE); KETONES,URINE NEGATIVE (NEGATIVE); LEUKOCYTE ESTERASE ,URINE NEGATIVE (NEGATIVE); NITRITE,URINE NEGATIVE (NEGATIVE); PH,URINE 6.5 (5-9); PROTEIN,URINE NEGATIVE (NEGATIVE); UROBILINOGEN,URINE NORMAL (NORMAL)
[2017-05-21] MEDS ORDERED: SUCR1TAB36 PO (15:06)
[2017-05-21 16:07] VITALS: BP 127/82
[2017-05-24 16:13] LABS: H PYLOR IGG INT Negative (Negative)
== END 2017-05-21 15:57 | disposition home or self-care (01) ==
LOC: EDUNIT# 13:46 → ER 13:49
DX: R10.13 Epigastric pain (principal); F41.8 Other specified anxiety disorders; R11.0 Nausea; R53.1 Weakness; K58.9 Irritable bowel syndrome, unspecified; K21.9 Gastro-esophageal reflux disease without esophagitis; Z98.51 Tubal ligation status; Z87.59 Personal history of other complications of pregnancy, childbirth and the puerperium; Z90.710 Acquired absence of both cervix and uterus
CPT/HCPCS: 36415; 80053; 81000; 83690; 84703; 85025; 86677

== ENCOUNTER → 2017-07-19 | Outpatient (CLI) | payer SELFPAY ==
[~2017-07-19] MED LIST changes: +ACHD5005 PO; +CATHETER FLUSH 10 ML SYR IV PRN; -HYDR-3812 PO
--- NOTE | 2017-07-19 12:49 | Diagnostic Imaging Report ---
INDICATION: Right upper quadrant pain. TECHNIQUE: Acquisitions were acquired over the abdomen after the patient was administered 5.42 mCi of technetium 99m Choletec. After 60 minutes, the patient ingested one can of Ensure followed by post ingestion images. FINDINGS: There is homogeneous uptake of isotope throughout the liver. There is significant accumulation in the gallbladder by 30 minutes. There is free flow of activity in the small bowel. The ejection fraction was calculated at 70.7%. IMPRESSION: Normal hepatobiliary scan and ejection fraction. Dictated by: Dictated on workstation # [id number]
== END ==
LOC: CARD 09:55
PROVIDERS: ATTEND Surgery
DX: R10.11 Right upper quadrant pain (principal)
CPT/HCPCS: 78227

== ENCOUNTER → 2018-09-05 | Outpatient (CLI) | payer MEDICAID ==
[~2018-09-05] MED LIST changes: -SCOP1PAT TD; +SCOP1PAT11 TD
--- NOTE | 2018-09-05 19:07 | Diagnostic Imaging Report ---
INDICATION: Nausea and vomiting. TECHNIQUE: The patient was administered 5.5 mCi technetium 99m Choletec intravenously and imaging over the abdomen was performed. At one hour, patient ingested 8 ounces of Ensure and a gallbladder ejection fraction was calculated. FINDINGS: There is homogeneous uptake of active by the liver with prompt excretion of activity into the common duct and gallbladder. Normal passage of activity into the small bowel is seen. Gallbladder ejection fraction is 65%. IMPRESSION: Normal HIDA scan and gallbladder ejection fraction. Dictated by: Dictated on workstation # [id number]
== END ==
LOC: CARD 12:13
PROVIDERS: ATTEND Surgery
DX: R11.2 Nausea with vomiting, unspecified (principal)
CPT/HCPCS: 78227

== ENCOUNTER 2018-10-18 10:15 | Outpatient (CLI) | payer MEDICAID ==
[~2018-10-18] VITALS: Ht 170.2 cm; Wt 51.7 kg
[~2018-10-18 10:15] MED LIST changes: -CATHETER FLUSH 10 ML SYR IV PRN; +FAMO-119 PO
== END 2018-10-18 10:46 | disposition home or self-care (01) ==
LOC: PREOP 10:15
PROVIDERS: ATTEND Surgery
DX: Z01.818 Encounter for other preprocedural examination (principal)

== ENCOUNTER 2018-10-20 11:17 | Day surgery (SDC) | payer MEDICAID ==
[~2018-10-20] VITALS: Ht 170.2 cm; Wt 51.7 kg
[2018-10-20] VITALS (12 sets, daily range): BP systolic 103–117; BP diastolic 57–83
[2018-10-20] MEDS ORDERED: ceFAZolin INJECTION 1,000 MG in WATER (STERILE) FOR INJECTION 10 ML IV ONE (11:30)
[2018-10-20] MEDS ORDERED: DEXAMETHASONE 4 MG/ML SDV (DECADRON) IV ONE (11:30)
[2018-10-20] MEDS ORDERED: ONDANSETRON 4 MG/2 ML (SDV) Z0FRAN IVP ONE (11:30)
[2018-10-20] MEDS ORDERED: BUP/EPI 0.5% 1:200,000 (SENSORCAINE) 30 ML VIAL ONE (11:37)
[2018-10-20] MEDS ORDERED: MIDAZOLAM 2 MG/2 ML (VERSED) VIAL ONE (11:42)
[2018-10-20] MEDS ORDERED: proPOfol 200 MG/20 ML (DIPRIVAN) VIAL IV ONE (11:42)
[2018-10-20] MEDS ORDERED: LIDOCAINE PF 2% 5 ML (XYLOCAINE) VIAL ONE (11:42)
[2018-10-20] MEDS ORDERED: fentaNYL INJECTION 100 MCG/2 ML AMP ONE (11:42)
[2018-10-20] MEDS ORDERED: DEXAMETHASONE 10 MG/ML (DECADRON) 1 ML VIAL ONE (11:42)
[2018-10-20] MEDS ORDERED: ONDANSETRON 4 MG/2 ML (SDV) Z0FRAN ONE (11:42)
[2018-10-20] MEDS ORDERED: SEVOFLURANE (ULTANE) 15 ML INHAL SOLN ONE ×4 (11:48→12:40)
[2018-10-20] MEDS ORDERED: SCOPOLAMINE 1.5 MG (TRANSDERM-SCOP) PATCH ONE (11:49)
[2018-10-20] MEDS ORDERED: FAMOTIDINE 20MG/2ML IV (PEPCID) ONE (11:49)
[2018-10-20] MEDS: LACTATED RINGERS 1,000 ML IV PRN ×2 (11:55→12:38)
[2018-10-20] MEDS ORDERED: SCOPOLAMINE 1.5 MG (TRANSDERM-SCOP) PATCH TD ONE (12:00)
[2018-10-20] MEDS ORDERED: FAMOTIDINE 20MG/2ML IV (PEPCID) IVP ONE (12:00)
--- NOTE | 2018-10-20 12:00 | Progress Note-Pre Operative ---
Pre-Operative Progress Note H&P Reviewed The H&P was reviewed, patient examined and no changes noted. Date Seen by Provider: October 20, 2018 Time Seen by Provider: 12:00 Date H&P Reviewed: October 20, 2018 Time H&P Reviewed: 12:00 Pre-Operative Diagnosis: symptomatic biliary dyskinesia, PUD TOM GRANADOS MD October 20, 2018 12:00
[2018-10-20 12:01] LABS: BASOPHILS % (AUTO) 1 % (0-10); EOSINOPHILS % (AUTO) 1 % (0-10); HEMATOCRIT 38 % (35-52); LYMPHOCYTES # (AUTO) 1.2 X 10^3 (1.0-4.0); LYMPHOCYTES % (AUTO) 22 % (12-44); MEAN CORPUSCULAR HEMOGLOBIN 30 PG (25-34); MEAN CORPUSCULAR HGB CONC 34 G/DL (32-36); MEAN CORPUSCULAR VOLUME 89 FL (80-99); MEAN PLATELET VOLUME 10.5 FL (7.4-10.4); MONOCYTES # (AUTO) 0.5 X 10^3 (0.0-1.0); MONOCYTES % (AUTO) 8 % (0-12); NEUTROPHILS # (AUTO) 3.7 X 10^3 (1.8-7.8); NEUTROPHILS % (AUTO) 68 % (42-75); PLATELET COUNT 204 10^3/uL (130-400); RED CELL DISTRIBUTION WIDTH 11.5 % (10.0-14.5); WHITE BLOOD COUNT 5.4 10^3/uL (4.3-11.0)
[2018-10-20] MEDS ORDERED: PANT40TA2 PO (12:02)
--- NOTE | 2018-10-20 12:03 | Discharge Inst-Surgical ---
D/C Lap Instructions-DARWIN New, Converted, or Re-Newed RX: RX on Chart Follow Up Appt in 2 weeks Activity as tolerated No driving for 24 hours No driving while on pain medications Incentive Spirometry use every 2 hours while awake Regular Diet Symptoms to Report: Fever over 101 degree F, Nausea/Vomiting Infection Signs and Symptoms to report: Increased redness, Foul odor of wound, Increased drainage Bathing instructions: May shower Operative Area Clean/Dry; Keep incision clean/dry If any problems/questions: Contact your physician or go to Emergency Room TOM GRANADOS MD October 20, 2018 12:03
[2018-10-20] MEDS ORDERED: oxyCODONE/APAP 5/325MG (PERCOCET 5) TABLET PO PRN (12:15)
[2018-10-20] MEDS ORDERED: morphine INJ 10 MG/ML 1ML (SYR OR VIAL) IVP PRN (12:15)
[2018-10-20] MEDS ORDERED: ACETAMINOPHEN 325 MG TABLET PO PRN (12:15)
[2018-10-20] MEDS ORDERED: ONDANSETRON 4 MG/2 ML (SDV) Z0FRAN IVP PRN ×2 (12:15→13:30)
[2018-10-20] MEDS ORDERED: NEOSTIGMINE 1 MG/ML 5 ML SYRINGE ONE (12:40)
[2018-10-20] MEDS ORDERED: GLYCOPYRROLATE 0.2 MG/ML (ROBINUL) 2 ML VIAL ONE (12:40)
[2018-10-20] MEDS ORDERED: PHENYLEPHRINE 100 MCG/ML 10 ML (ANESTHESIA) SYR ONE (12:41)
[2018-10-20] MEDS ORDERED: ROCURONIUM 10 MG/ML 5 ML SYRINGE IV ONE (12:46)
[2018-10-20] MEDS ORDERED: KETOROLAC 30 MG/ML VIAL ONE (12:56)
--- NOTE | 2018-10-20 13:18 | Progress Note-Post Operative ---
Post-Operative Progess Note Surgeon (s)/Crew Manager (s) Surgeon TOM GRANADOS MD Crew Manager: pardeep balderas FASHION ARTIST Pre-Operative Diagnosis symptomatic biliary dyskinesia, PUD Post-Operative Diagnosis biliary dykinesia, reflux esophagitis(stage 2), moderate HH(2.5cm), mild-mod gastritis. Procedure & Operative Findings Date of Procedure 10/20/18 Procedure Performed/Findings laparoscopic cholecystectomy, EGD with bx. Anesthesia Type get Estimated Blood Loss Estimated blood loss (mL): minimal Specimens/Packing Specimens Removed gallbladder, ge jxn, antrum TOM GRANADOS MD October 20, 2018 13:18
[2018-10-20] MEDS ORDERED: HYDROmorphone 2 MG/ML VIAL (DILAUDID) ONE (13:20)
[2018-10-20] MEDS ORDERED: HYDROmorphone 2 MG/ML VIAL (DILAUDID) IV ONE (13:30)
--- NOTE | 2018-10-20 13:53 | Anesthesia-General Post-Op ---
General Patient Condition Mental Status/LOC: Same as Preop Cardiovascular: Satisfactory Nausea/Vomiting: Absent Respiratory: Satisfactory Pain: Controlled Complications: Absent Post Op Complications Complications None Follow Up Care/Instructions Patient Instructions None needed. Anesthesia/Patient Condition Patient Condition Patient is doing well, no complaints, stable vital signs, no apparent adverse anesthesia problems. No complications reported per nursing. LUIS A DOUGLAS CRNA October 20, 2018 13:53
[2018-10-20] MEDS ORDERED: HYDR-3816 PO (15:05)
--- NOTE | 2018-10-20 18:05 | OPERATIVE REPORT ---
DATE OF SERVICE: ATTENDING TOP PRECIPITATOR OPERATOR HELPER: [facility]. PREOPERATIVE DIAGNOSES: Symptomatic biliary dyskinesia, peptic ulcer disease. POSTOPERATIVE DIAGNOSES: Symptomatic biliary dyskinesia, reflux esophagitis stage II, moderate size hiatal hernia approximately 2.5 cm in size, mild to moderate gastritis. PROCEDURE: Laparoscopic cholecystectomy, EGD with biopsy. SURGEON: Tom Granados MD PACKAGE LINER: Blanco Daely APRN ANESTHESIA: General endotracheal. ESTIMATED BLOOD LOSS: Minimal. FINDINGS: As above in the postoperative diagnoses. DISPOSITION: The patient tolerated the procedure well. INDICATIONS: The patient is a 37-year-old female who has had intermittent episodes of nausea and vomiting as well as pain in the right upper abdominal quadrant as well as the epigastric region. We initially tried conservative medical management with acid reducers with Pepcid; however, she continued to have symptoms. She states that over time the symptoms did continue and she did develop nausea usually after eating meals and occasional episodes of vomiting as well. An ultrasound was performed, which did not show any gallstones; however, HIDA scan was performed and during the administration of the Kinevac analogue, she did have reproduction of symptoms consistent with biliary dyskinesia. She also has had multiple family members with the same gallbladder issues. DESCRIPTION OF PROCEDURE: The patient was brought to the operating room, laid supine on the table. After adequate IV pain and sedative medications and general endotracheal intubation, the abdomen was prepped and draped in standard surgical fashion. A 0.5% Marcaine with epinephrine was used to anesthetize the overlying skin in the left upper abdominal quadrant and a transverse skin incision made using a 15 blade. A 0 silk suture was applied to the medial aspect of the incision for traction and a Veress needle inserted with a low opening pressure of 0 mmHg. The abdomen was then insufflated to 15 mmHg pressure. The Veress needle removed and a 5 mm Xcel trocar placed followed by a 5 mm 45-degree angle laparoscope visualizing the peritoneal cavity. A 4-quadrant abdominal exploration was performed. There was a slightly distended gallbladder as well as mild omental adhesions to the gallbladder body and fundus of the gallbladder consistent with a biliary dyskinesia. Under direct visualization, we then proceed to place a supraumbilical 10 mm port after the skin and peritoneal lining were anesthetized using 0.5% Marcaine with epinephrine and a transverse skin incision made using 15 blade. In a similar manner, a right upper abdominal quadrant 5 mm port was placed. The patient was then placed in reverse Trendelenburg position as well as plane right side up, left side down. The fundus of the gallbladder was then retracted anteriorly and superiorly. The omental adhesions to the fundus and body of the gallbladder were then taken down using blunt dissection as well as electrocautery and hook instrument. The hepatoduodenal ligament was then opened using blunt dissection as well as cautery on the hook instrument. The entire critical view of safety was identified including the triangle of Calot as well as the cystic duct and artery as the only two structures going into the gallbladder as well as the cystic plate behind the proximal gallbladder. A timeout was then taken. The cystic duct and artery were clipped proximally, distally and cut with EndoShears. The gallbladder was then dissected off the liver bed using electrocautery and the hook instrument with visualization of good hemostasis as well as no leaking ducts of Luschka. The gallbladder was removed through the 10 mm port site using an EndoCatch bag. The 10 mm port site fascia and peritoneum were then closed under direct visualization using a Margarito-Loc device and 0 Vicryl suture. The abdomen was desufflated and remaining ports removed. All skin incisions were closed using 4-0 Monocryl running subcuticular sutures. Wounds were then cleaned and covered with Dermabond. The patient tolerated this portion of the procedure well. We will start IV and oral pain medications as well as a clear liquid diet. Once she is tolerating clears, has good pain control with oral pain medications, ambulating, we will discharge her home. She will be instructed to do no heavy lifting or exertion for the next two weeks. Under the same anesthesia, we then proceeded with the EGD portion of procedure. Under the same anesthesia, the mouthpiece was applied. Endoscope was placed in the mouth, visualizing the pharynx and hypopharyngeal region. Vocal cords, epiglottis and vallecula identified and appeared to be normal. The endoscope was then gently intubated. The esophageal opening and esophagus insufflated. The endoscope was then advanced to the first, second and third portion of the esophagus at the level of the GE junction, a reflux esophagitis stage II identified. The GE junction was also intrathoracic consistent with a hiatal hernia. There were no ulcers or strictures identified in this region and a biopsy was taken of the GE junction with forceps with visualization of good hemostasis. The endoscope was then advanced into the stomach and endoscope retroflexed, visualizing a hiatal hernia, which was moderate in size, approximately 2.5 cm. A mild to moderate gastritis was noted at the stomach antrum. There were no formal ulcerations, polyps or any neoplasms identified. A biopsy was taken of the antrum with forceps with visualization of good hemostasis. The endoscope was then advanced to the pylorus and the first and second portion of the duodenum, which appeared normal with no distal obstructions. The endoscope was then slowly withdrawn while taking a second look and suctioning of residual air with no additional findings. The patient tolerated this portion of the procedure well. We will recommend the necessary lifestyle accommodation including small and more frequent meals, avoidance of eating at night as well as head elevation while lying supine. She also needs to avoid caffeinated beverages, spicy, greasy and acidic foods. We will also start her on Protonix 40 mg daily. If she has continued symptoms despite maximal medical therapy, we will further evaluate her for potential hiatal hernia repair. Job ID: [id number] DocumentID: [id number] Dictated Date: 10/20/2018 13:26:07 Motorsports Technician Date: 10/20/2018 18:04:34 Dictated By: TOM GRANADOS MD
== END 2018-10-20 15:55 | disposition home or self-care (01) ==
LOC: SDC 11:17
PROVIDERS: ATTEND Surgery
DX: K81.1 Chronic cholecystitis (principal); K21.0 Gastro-esophageal reflux disease with esophagitis; K44.9 Diaphragmatic hernia without obstruction or gangrene; K29.70 Gastritis, unspecified, without bleeding; K58.0 Irritable bowel syndrome with diarrhea
CPT/HCPCS: 36415; 85025; 87081

== ENCOUNTER 2018-11-09 15:38 | Outpatient (RCR) | payer MEDICAID ==
[~2018-11-09 15:38] MED LIST changes: +HYDR-3816 PO
== END 2018-11-09 16:13 | disposition home or self-care (01) ==
PROVIDERS: ATTEND Nurse Practitioner
DX: M22.42 Chondromalacia patellae, left knee (principal)

== ENCOUNTER → 2019-02-22 | Outpatient (CLI) | payer MEDICAID, OTHER ==
--- NOTE | 2019-02-27 10:31 | Diagnostic Imaging Report ---
INDICATION: Tarsal tunnel syndrome questioned. Bilateral foot pain marker on areas of worse pain. Pain is mid to hindfoot on both feet. No known injuries. EXAMINATION: Right lower extremity MRI of 02/22/2019. FINDINGS: There is a marker along the medial aspect of the midfoot at the site of pain. Deep to the marker, there is a small collection of fluid which lies just medial to the cuboid. It is unclear if this represents fluid in the region of the sinus tarsi or if it represents a small focal ganglion. Deep to the cystic collection, there is mild heterogeneity within the sinus tarsi. Mild edema is seen within the fatty tissues in the sinus tarsi; however, no ligamentous discontinuity is appreciated. There is a separate cystic appearing collection more distally along the plantar aspect of the foot which underlies the navicular and adjacent base of the second and third metatarsals. This is most likely a small ganglion and measures approximately 6 mm in size. The osseous structures demonstrate no evidence for an acute abnormality. The visualized aspects of the talar dome are unremarkable. There is some fluid posterior to the talus in the tibiotalar joint and in the subtalar joint. The visualized tendons are intact. The flexor retinaculum is unremarkable. The anterior and posterior talofibular ligaments are intact. The anterior and posterior inferior tibiofibular ligaments are intact. The deltoid ligament is intact. IMPRESSION: 1. Cystic collections about the foot, likely small ganglia. 2. 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 Dictated by: Dictated on workstation # [id number]
--- NOTE | 2019-02-27 11:57 | Diagnostic Imaging Report ---
EXAMINATION: Left lower extremity MRI from 02/22/2019. TECHNIQUE: Multiplanar, multisequence non contrast enhanced MR imaging of the left lower extremity was accomplished. INDICATION: Pain in the mid to posterior hindfoot, question tarsal tunnel syndrome bilateral pain. FINDINGS: Marker along the medial aspect of the foot is noted at the site of concern. Immediately underlying the marker no gross abnormalities are seen. There is fluid just anterior to the sinus tarsi. A small amount of fluid along the distal aspect of the sinus tarsi also noted. The fatty tissues within the region appear ill-defined. No tears of the corresponding ligaments noted but there is diffuse ill-definition suggesting possible sinus tarsi syndrome correlate with symptoms. Additionally, tiny cystic structure is noted along the plantar aspect of the midfoot. These could be areas of joint fluid versus small ganglia. The osseous structures demonstrate no evidence for acute abnormality. Talar dome is unremarkable. The anterior and posterior talofibular ligaments appear intact. The anterior and posterior inferior tibiofibular ligaments are intact. Deltoid ligament intact. The Achilles tendon is intact. The extensor and flexor tendons are intact. Peroneal tendons are intact. There is some fluid in the posterior subtalar joint and minimal fluid within the anterior and posterior tibiotalar joint spaces. IMPRESSION: 1. 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 Correlate with symptoms. No ligamentous tears appreciated. 2. Remaining visualized structures demonstrate likely small ganglia along the plantar aspect of the midfoot as well as joint effusions about the ankle. 3. Ligaments and tendons are intact. Dictated by: Dictated on workstation # [id number]
== END ==
LOC: RAD 12:24
PROVIDERS: ATTEND Podiatrist Foot & Ankle Surgery
DX: M76.822 Posterior tibial tendinitis, left leg (principal); G57.50 Tarsal tunnel syndrome, unspecified lower limb; L72.8 Other follicular cysts of the skin and subcutaneous tissue

== ENCOUNTER → 2019-12-21 | Outpatient (CLI) | payer OTHER ==
[~2019-12-21] MED LIST changes: +HYDR-34 PO; -HYDR-3816 PO
--- NOTE | 2019-12-21 15:37 | Diagnostic Imaging Report ---
PROCEDURE: MRI lumbar spine. TECHNIQUE: Multiplanar, multisequence MRI of the lumbar spine was performed without contrast. INDICATION: Chronic low back pain. COMPARISON: No prior study is available for comparison. FINDINGS: The curvature and alignment of the lumbar spine is normal. Vertebral body heights are maintained. No compression fracture is seen. 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 The conus appears unremarkable at the L1 level. There is mild loss of height and signal intensity to the L4-L5 and L5-S1 discs compatible with degenerative disc disease. T12-L1: No focal disc protrusion is seen. No central canal or neural foraminal stenosis is identified. Very slight disc bulging left paramidline is noted. L1-S2: No central canal or neural foraminal narrowing is detected. L2-L3: No central canal or neural foraminal stenosis is identified. L3-L4: No central canal or neural foraminal stenosis is identified. L4-L5: Broad-based disc/osteophyte complex flattens the ventral thecal sac. Central canal remains widely patent. There are ligament thickening and facet changes noted. No resultant neural foraminal narrowing is seen. L5-S1: There is some mild broad-based disc bulging; however, no resultant central canal stenosis is seen. There is minimal signal within the posterior annulus. The neural foramina are patent. There are some mild degenerative facet changes noted. IMPRESSION: Mild lower lumbar spondylosis; however, no resultant central canal or neural foraminal stenosis is detected. Dictated by: Dictated on workstation # [id number]
== END ==
LOC: RAD 14:26
PROVIDERS: ATTEND Nurse Practitioner Community Health
DX: M47.816 Spondylosis without myelopathy or radiculopathy, lumbar region (principal)
CPT/HCPCS: 72148

== ENCOUNTER → 2020-08-09 | Outpatient (CLI) | payer OTHER ==
[~2020-08-09] MED LIST changes: +PANT20TA18; -PANT20TA3
--- NOTE | 2020-08-09 09:41 | Diagnostic Imaging Report ---
INDICATION: Routine screening. No prior mammograms are available for comparison. 2-D and 3-D bilateral screening mammography was performed with CAD. Both breasts are heterogeneously dense, limiting the sensitivity of mammography. No mass or malignant appearing microcalcifications are seen. Axillae are unremarkable. IMPRESSION: BI-RADS Category 1 No mammographic features suspicious for malignancy are identified. ACR BI-RADS Category 1: Negative. Result letter will be mailed to the patient. Note: At least 10% of breast cancer is not imaged by mammography. Dictated by: Dictated on workstation # [id number]
== END ==
LOC: RAD 09:02
PROVIDERS: ATTEND Nurse Practitioner Family
DX: Z12.31 Encounter for screening mammogram for malignant neoplasm of breast (principal)
CPT/HCPCS: 77063; 77067